=== PATIENT | female | born 1945 | race Caucasian/White ===

== ENCOUNTER 2017-06-28 15:01 | Emergency (ER) | payer OTHER ==
[~2017-06-28] VITALS: Ht 160 cm; Wt 97.5 kg
[2017-06-28] MEDS ORDERED: INSU100I27 SQ (15:25)
[2017-06-28] MEDS ORDERED: CLON1TAB3 PO (15:25)
[2017-06-28] MEDS ORDERED: ENAL10TA PO (15:26)
[2017-06-28] MEDS ORDERED: GABA800T2 PO (15:26)
[2017-06-28] MEDS ORDERED: AMLO10TA4 PO (15:27)
[2017-06-28] MEDS ORDERED: CITA10TA8 PO (15:27)
[2017-06-28] MEDS ORDERED: OMEP20TA63 PO (15:27)
[2017-06-28] MEDS ORDERED: TRAM50TA PO (15:28)
[2017-06-28] MEDS ORDERED: IV NORMAL SALINE 1,000ML 1,000 ML IV ONE (15:30)
[2017-06-28 15:37] LABS: BASO # 0.1 x10^3/uL (0.0-0.2); BASO % 0 % (0-3); EOS % 0 % (0-3); HEMATOCRIT 30.7 % (36.0-47.0); HEMOGLOBIN 9.2 g/dL (12.0-15.5); LYMPH # 2.3 x10^3/uL (1.0-4.8); LYMPH % 9 % (24-48); MEAN CORPUSCULAR HEMOGLOBIN 21 pg (25-35); MEAN CORPUSCULAR HGB CONC 30 g/dL (31-37); MEAN CORPUSCULAR VOLUME 69 fL (79-100); MONO % 7 % (0-9); NEUT # 22.8 x10^3uL (1.8-7.7); NEUT % 84 % (31-73); PLATELET COUNT 496 x10^3/uL (140-400); RED BLOOD COUNT 4.47 x10^6/uL (3.50-5.40); RED CELL DISTRIBUTION WIDTH 21.5 % (11.5-14.5); WHITE BLOOD COUNT 27.3 x10^3/uL (4.0-11.0)
[2017-06-28 15:39] LABS: ALBUMIN 2.9 g/dL (3.4-5.0); ALBUMIN/GLOBULIN RATIO 0.6 (1.0-1.7); CALCIUM 9.6 mg/dL (8.5-10.1); CREATININE 0.8 mg/dL (0.6-1.0); GFR 70.9; POTASSIUM 3.7 mmol/L (3.5-5.1); TOTAL BILIRUBIN 0.5 mg/dL (0.2-1.0); TOTAL PROTEIN 7.7 g/dL (6.4-8.2)
[2017-06-28] MEDS ORDERED: IOHEXOL 300 MG/ML 75 ML VIAL. IV ONE (16:30)
--- NOTE | 2017-06-28 16:43 | RAD ---
Single view of the Chest 06/28/2017 6:03 PM Indication: shortness of breath Comparison: Chest radiograph August 25, 2009 Findings: Lordotic projection noted. No pneumothorax is identified. Mild central vascular congestion and interstitial coarsening. Findings could represent mild edema/congestive failure. There is borderline cardiomegaly. No acute osseous changes are seen. Impression: 1. Mild central vascular congestion and interstitial coarsening. 2. Borderline cardiomegaly
--- NOTE | 2017-06-28 16:51 | RAD ---
Indication: abdominal pain Technique: CT abdomen and pelvis with 75 mL of Omnipaque 300 with multiplanar reformats. Comparison: None Findings: Heart is normal in size. No pericardial or pleural effusion. Nodular opacities are seen in the left lower lobe and lingula. Too small to characterize low attenuating lesion is seen in segment 4A most likely a cystic biliary hamartoma. Otherwise, liver is within normal limits. Spleen, gallbladder, pancreas, adrenals are within normal limits. Nonobstructing punctate left renal stone. Well-circumscribed couple of low attenuating lesions in the right kidney. No hydronephrosis. No retroperitoneal or pelvic adenopathy. No bowel obstruction. Circumferential bladder wall thickening noted. No radiopaque bladder stone. Uterus is anteverted. Calcified fibroid seen in the fundus of the uterus. Endometrial stripe is thickened measuring 2 cm. Bilateral ovaries are within normal limits. No free pelvic fluid. Diffuse atherosclerotic disease of the abdominal aorta and bilateral iliac arteries noted. Diffuse wall thickening of the stomach most likely due to suboptimal distention. No suspicious bony lesion. Degenerative disc disease noted at L4-L5. Impression: 1. No acute findings. No bowel obstruction. 2. Significantly thickened endometrium may be secondary to endometrial hyperplasia or endometrial carcinoma. Nonemergent Ultrasound pelvis recommended. 3. Circumferential wall thickening of the tendon bladder may be secondary to cystitis. Clinically correlate with urinalysis. 4. Circumferential wall thickening of the stomach likely due to suboptimal distention. However, may represent gastritis or gastric malignancy. EGD may be obtained if clinically warranted. 5. Nodular opacities in the lingula and left lower lobe may be secondary to aspiration or endobronchial swelling of infection. PQRS Compliance Statement: One or more of the following individualized dose reduction techniques were utilized for this examination: 1. Automated exposure control 2. Adjustment of the mA and/or kV according to patient size 3. Use of iterative reconstruction technique
[2017-06-28 17:53] LABS: % BANDS 1 % (0-9); % BASOS 2 % (0-3); % LYMPHS 6 % (24-48); % MONOS 4 % (0-10); % SEGS 84 % (35-66)
[2017-06-28] MEDS ORDERED: cefTRIAXone SODIUM 1 GM VIAL IV ONE (18:13)
--- NOTE | 2017-06-28 18:13 | PHYS DOC ---
Past History Past Medical History: Anxiety, Depression, Diabetes, GERD, Hypertension Past Surgical History: Tubal ligation Alcohol Use: None Drug Use: None Adult General Chief Complaint Chief Complaint: DIARRHEA HPI HPI Patient is a 72 year old F who presents with diarrhea over the past 2 days. Nathaly states that she has generally not been feeling well over the past 2 days. She has not been using her prescribe supplemental oxygen or taking any medications over the past 2 days. She notes mild blood in her stool. She does have mild worsening shortness of breath. She has no other associated symptoms at this time. She has no other exacerbating or relieving factors. Review of Systems Review of Systems Constitutional: Denies fever or chills [] Eyes: Denies change in visual acuity, redness, or eye pain [] HENT: Denies nasal congestion or sore throat [] Respiratory: Negative except history of present illness Cardiovascular: No additional information not addressed in HPI [] GI: Negative except history of present illness : Denies dysuria or hematuria [] Musculoskeletal: Denies back pain or joint pain [] Integument: Denies rash or skin lesions [] Neurologic: Denies headache, focal weakness or sensory changes [] Endocrine: Denies polyuria or polydipsia [] All other systems were reviewed and found to be within normal limits, except as documented in this note. Family History Family History No pertinent family medical history was reported Current Medications Current Medications Current medications reviewed Current Medications Medications (Trade) Dose Ordered Sig/Xiang Start Time Stop Time Status Last Admin Dose Admin Ceftriaxone Sodium 1 gm/ Sodium Chloride 50 ml @ 100 mls/hr 1X ONCE 06/28/17 18:15 06/28/17 18:44 UNV Iohexol (Omnipaque 300 Mg/ml) 75 ml 1X ONCE 06/28/17 16:30 06/28/17 16:31 DC 06/28/17 16:25 75 ML Sodium Chloride 1,000 ml @ 250 mls/hr 1X ONCE 06/28/17 15:30 06/28/17 19:29 06/28/17 15:30 250 MLS/HR Allergies Allergies Allergies Coded Allergies Type Severity Reaction Last Updated Verified No Known Drug Allergies 06/28/17 No Physical Exam Physical Exam Constitutional: Well developed, well nourished, no acute distress, non-toxic appearance. [] HENT: Normocephalic, atraumatic, Eyes: EOMI, conjunctiva normal, no discharge. [] Neck: Normal range of motion, no tenderness, supple, no stridor. [] Cardiovascular:Heart rate regular rhythm, Lungs & Thorax: Bilateral breath sounds clear to auscultation [] diminished bilaterally with minimal wheezing noted Abdomen: Bowel sounds normal, soft, no tenderness, no masses, no pulsatile masses. [] Skin: Warm, dry, no erythema, no rash. [] Extremities: No tenderness, no cyanosis, no clubbing, ROM intact, no edema. [] Neurologic: Alert and oriented X 3, normal motor function, normal sensory function, no focal deficits noted. [] Psychologic: Affect normal, judgement normal, mood normal. [] Current Patient Data Vital Signs Vital Signs Date Time Temp Pulse Resp B/P (MAP) Pulse Ox O2 Delivery O2 Flow Rate FiO2 06/28/17 17:14 90 18 142/71 (94) 06/28/17 16:40 94 Nasal Cannula 2.0 06/28/17 15:02 98.2 Lab Results Laboratory Tests Test 06/28/17 15:08 White Blood Count 27.3 x10^3/uL (4.0-11.0) H Red Blood Count 4.47 x10^6/uL (3.50-5.40) Hemoglobin 9.2 g/dL (12.0-15.5) L Hematocrit 30.7 % (36.0-47.0) L Mean Corpuscular Volume 69 fL (79-100) L Mean Corpuscular Hemoglobin 21 pg (25-35) L Mean Corpuscular Hemoglobin Concent 30 g/dL (31-37) L Red Cell Distribution Width 21.5 % (11.5-14.5) H Platelet Count 496 x10^3/uL (140-400) H Neutrophils (%) (Auto) 84 % (31-73) H Lymphocytes (%) (Auto) 9 % (24-48) L Monocytes (%) (Auto) 7 % (0-9) Eosinophils (%) (Auto) 0 % (0-3) Basophils (%) (Auto) 0 % (0-3) Neutrophils # (Auto) 22.8 x10^3uL (1.8-7.7) H Lymphocytes # (Auto) 2.3 x10^3/uL (1.0-4.8) Monocytes # (Auto) 2.0 x10^3/uL (0.0-1.1) H Eosinophils # (Auto) 0.0 x10^3/uL (0.0-0.7) Basophils # (Auto) 0.1 x10^3/uL (0.0-0.2) Platelet Estimate Pending Sodium Level 141 mmol/L (136-145) Potassium Level 3.7 mmol/L (3.5-5.1) Chloride Level 102 mmol/L (98-107) Carbon Dioxide Level 29 mmol/L (21-32) Anion Gap 10 (6-14) Blood Urea Nitrogen 17 mg/dL (7-20) Creatinine 0.8 mg/dL (0.6-1.0) Estimated GFR (Cockcroft-Gault) 70.9 BUN/Creatinine Ratio 21 (6-20) H Glucose Level 200 mg/dL (70-99) H Calcium Level 9.6 mg/dL (8.5-10.1) Total Bilirubin 0.5 mg/dL (0.2-1.0) Aspartate Amino Transferase (AST) 183 U/L (15-37) H Alanine Aminotransferase (ALT) 75 U/L (14-59) H Alkaline Phosphatase 109 U/L (46-116) Total Protein 7.7 g/dL (6.4-8.2) Albumin 2.9 g/dL (3.4-5.0) L Albumin/Globulin Ratio 0.6 (1.0-1.7) L EKG EKG [] Radiology/Procedures Radiology/Procedures Chest x-ray - vascular congestion with possible underlying infiltrate Impressions: CT abdomen and pelvis with IV contrast Findings: Heart is normal in size. No pericardial or pleural effusion. Nodular opacities are seen in the left lower lobe and lingula. Too small to characterize low attenuating lesion is seen in segment 4A most likely a cystic biliary hamartoma. Otherwise, liver is within normal limits. Spleen, gallbladder, pancreas, adrenals are within normal limits. Nonobstructing punctate left renal stone. Well-circumscribed couple of low attenuating lesions in the right kidney. No hydronephrosis. No retroperitoneal or pelvic adenopathy. No bowel obstruction. Circumferential bladder wall thickening noted. No radiopaque bladder stone. Uterus is anteverted. Calcified fibroid seen in the fundus of the uterus. Endometrial stripe is thickened measuring 2 cm. Bilateral ovaries are within normal limits. No free pelvic fluid. Diffuse atherosclerotic disease of the abdominal aorta and bilateral iliac arteries noted. Diffuse wall thickening of the stomach most likely due to suboptimal distention. No suspicious bony lesion. Degenerative disc disease noted at L4-L5. Impression: 1. No acute findings. No bowel obstruction. 2. Significantly thickened endometrium may be secondary to endometrial hyperplasia or endometrial carcinoma. Nonemergent Ultrasound pelvis recommended. 3. Circumferential wall thickening of the tendon bladder may be secondary to cystitis. Clinically correlate with urinalysis. 4. Circumferential wall thickening of the stomach likely due to suboptimal distention. However, may represent gastritis or gastric malignancy. EGD may be obtained if clinically warranted. 5. Nodular opacities in the lingula and left lower lobe may be secondary to aspiration or endobronchial swelling of infection. Course & Med Decision Making Course & Med Decision Making Pertinent Labs and Imaging studies reviewed. (See chart for details) Unclear diagnosis. Given the white count and mild increased shortness of breath as well as no acute finding and abdomen her diagnosis is presumptive pneumonia. However cancer may be considered due to the abnormal findings on her CT scan. Dr. Huynh was contacted by phone and recommended transfer to [facility] for further management. Dragon Disclaimer Dragon Disclaimer This electronic medical record was generated, in whole or in part, using a voice recognition dictation system. Departure Departure: Impression: Primary Impression: Community acquired pneumonia Disposition: XFER OTHER Condition: STABLE Referrals: ADONAY CHEN MD (PCP) Problem Qualifiers Primary Impression: Community acquired pneumonia Laterality: unspecified laterality Qualified Codes: J18.9 - Pneumonia, unspecified organism ADONAY HINTON MD Jun 28, 2017 18:13
[2017-06-28 18:23] LABS: TARGET CELLS FEW
[2017-06-28 18:24] LABS: PLT ESTIMATE INCREASED (ADEQUATE); POLYCHROMASIA PRESENT
[2017-06-28] MEDS ORDERED: cefTRIAXone IV Push 1 GM VIAL. IVP ONE (18:30)
[2017-06-28 18:31] LABS: HYPOCHROMIA MOD
[2017-06-28 18:34] LABS: MICROCYTOSIS MOD
[2017-06-28 18:36] LABS: ANISOCYTOSIS MOD
[2017-06-28 18:41] LABS: OVALOCYTES FEW
[2017-06-28 18:49] VITALS: BP 144/76
[2017-06-28 18:50] LABS: SPHEROCYTES PRESENT
[2017-06-28 18:53] LABS: % ATYL 3 % (0-0)
== END 2017-06-28 18:45 | disposition short-term general hospital (02) ==
LOC: ER 15:01
DX: J18.9 Pneumonia, unspecified organism (principal); K21.9 Gastro-esophageal reflux disease without esophagitis; I10 Essential (primary) hypertension; F41.9 Anxiety disorder, unspecified; E11.9 Type 2 diabetes mellitus without complications; F32.9 Major depressive disorder, single episode, unspecified
CPT/HCPCS: 36415; 71045; 74177; 80053; 85007; 85025; 87040; 96361; 96374; 99285; J0696; Q9967; J7030

== ENCOUNTER → 2017-09-06 | Outpatient (CLI) | payer OTHER ==
[~2017-09-06] MED LIST: AMLO10TA4 PO; CITA10TA8 PO; CLON1TAB3 PO; ENAL10TA PO; GABA800T2 PO; INSU100I27 SQ; OMEP20TA63 PO; TRAM50TA PO
--- NOTE | 2017-09-06 14:58 | RAD ---
PQRS Compliance Statement: One or more of the following individualized dose reduction techniques were utilized for this examination: 1. Automated exposure control 2. Adjustment of the mA and/or kV according to patient size 3. Use of iterative reconstruction technique CT chest without contrast September 06, 2017 INDICATION: COPD, smoker for 50 years. Shortness of air. COMPARISON: CT chest August 25, 2009. TECHNIQUE: Multiple axial CT images of the chest were obtained without intravenous contrast. Coronal and sagittal reformats are provided. FINDINGS: The thyroid gland is normal in appearance. There are no pathologically enlarged axillary, mediastinal or hilar lymph nodes. Heart size is within normal limits. There is trace pericardial fluid, likely physiologic. Thoracic aorta is normal in course and caliber with dense atherosclerotic calcification. Three-vessel coronary artery vascular calcifications are present. There is mild centrilobular pulmonary emphysema. There is a 6 mm groundglass nodule in the medial left upper lobe (series 2, image 50) bandlike density in the inferior lingula is favored to represent subsegmental atelectasis versus scarring. Additional 4 mm groundglass nodule is noted in the left upper lobe (series 2, image 50). Tree-in-bud nodular airspace disease is noted in the left lower lobe, suggestive of an infectious/inflammatory pneumonitis. There is mild bronchial wall thickening compatible with bronchitis. There are no pleural effusions. No pulmonary vascular congestion or pneumothorax. Visualized portions of the upper abdomen appear normal. No suspicious osseous lesions are identified. IMPRESSION: 1. There is a 6 mm groundglass nodule in the left upper lobe. Findings are likely infectious or inflammatory. Further evaluation with a 3 month follow-up chest CT is recommended. Tree-in-bud nodular airspace disease in the left lower lobe is suspected be secondary to infectious/inflammatory pneumonitis. Attention to this region on follow-up examination is recommended. 2. COPD changes with mild pulmonary centrilobular pulmonary emphysema and bronchitis. 3. Atherosclerotic changes involving the coronary vasculature and aorta. Electronically signed by: Coleen Cash MD (09/06/2017 2:55 PM) [id number]
== END | disposition home or self-care (01) ==
LOC: CT 12:00
PROVIDERS: ATTEND Family Medicine
DX: J44.0 Chronic obstructive pulmonary disease with (acute) lower respiratory infection (principal); Z87.891 Personal history of nicotine dependence
CPT/HCPCS: 71250

== ENCOUNTER → 2017-09-29 | Outpatient (CLI) | payer OTHER ==
[~2017-09-29] MED LIST changes: -CLON1TAB3 PO; +CLON1TAB4 PO
--- NOTE | 2017-10-02 11:29 | RAD ---
DATE: 2017 EXAM: MAMMO SARAH SCREENING BILATERAL HISTORY: Asymptomatic screening mammogram. COMPARISON: None available This study was interpreted with the benefit of Computerized Aided Detection (CAD). The breast parenchyma shows scattered fibroglandular densities. Breast parenchyma level B. FINDINGS: Bilateral CC and MLO views of the breasts were performed. 3-D tomosynthesis of each breast was performed in CC and MLO projections. Right breast: 3 circumscribed masses are identified in the upper outer right breast at posterior depth favored to represent benign etiology such as intramammary lymph nodes. There are no suspicious microcalcifications, masses or areas of architectural distortion. Left breast: There are no suspicious microcalcifications, masses or areas of architectural distortion. IMPRESSION: 1. Benign findings in the right breast, favored to represent intramammary lymph nodes. If prior mammograms are available for comparison, recommend submission for comparison. 2. Negative left mammogram. BI-RADS CATEGORY: 2 BENIGN FINDING(S) RECOMMENDED FOLLOW-UP: [facility]REV REQUEST FOR PREVIOUS MAMMOGRAM PQRS compliance statement: Patient information was entered into a reminder system with a target due date 09/29/2018 for the next mammogram. Mammography is a sensitive method for finding small breast cancers, but it does not detect them all and is not a substitute for careful clinical examination. A negative mammogram does not negate a clinically suspicious finding and should not result in delay in biopsying a clinically suspicious abnormality. "Our facility is accredited by the [employer] Mammography Program."
== END | disposition home or self-care (01) ==
LOC: MAMMO 15:20
PROVIDERS: ATTEND Family Medicine
DX: Z12.31 Encounter for screening mammogram for malignant neoplasm of breast (principal); I10 Essential (primary) hypertension; E11.9 Type 2 diabetes mellitus without complications; J44.0 Chronic obstructive pulmonary disease with (acute) lower respiratory infection; K21.9 Gastro-esophageal reflux disease without esophagitis; Z87.891 Personal history of nicotine dependence
CPT/HCPCS: 77063; 77067